=== PATIENT | female | born 1970 | race Caucasian/White ===

== ENCOUNTER 2020-05-17 09:38 | Emergency (ER) | payer MEDICARE, OTHER ==
[2020-05-17] MEDS ORDERED: ZOFRAN4 MG PO (10:55)
== END 2020-05-17 11:20 | disposition home or self-care (01) ==
LOC: ER1 09:38
DX: U07.1 COVID-19 (principal); R11.2 Nausea with vomiting, unspecified; Z88.5 Allergy status to narcotic agent; Z88.6 Allergy status to analgesic agent
CPT/HCPCS: 99283